=== PATIENT | female | born 1995 | race Two or more races ===

== ENCOUNTER 2021-04-13 15:29 | Observation (INO) | payer MEDICAID, OTHER ==
[2021-04-13 17:01] LABS: Basophils # (auto) 0 10 ^3/uL (0-0.2); Basophils % (auto) 0.5 % (0.0-2.0); Eosinophils # (auto) 0.1 10 ^3/uL (0-0.8); Eosinophils % (auto) 0.8 % (0.0-7.0); Hematocrit 34.8 % (36.0-46.0); Hemoglobin 12.2 g/dL (12.2-16.2); Lymphocytes # (auto) 1.3 10 ^3/uL (0.4-5.4); Lymphocytes % (auto) 16.5 % (10.0-50.0); Mean Corpuscular Hemoglobin 30.2 pg (28.0-32.0); Mean Corpuscular Hgb Conc. 35.2 g/dL (32.0-36.0); Mean Corpuscular Volume 85.9 fL (80.0-100.0); Monocytes # (auto) 0.8 10 ^3/uL (0-1.3); Monocytes % (auto) 10.5 % (0.0-12.0); Neutrophils # (auto) 5.6 10 ^3/uL (1.6-8.6); Neutrophils % (auto) 71.7 % (37.0-80.0); Nucleated Red Blood Cells % 0.2 %; Red Blood Cells 4.05 10^6/uL (4.0-5.20); Red Cell Distribution Width 13.3 % (11.8-14.3); White Blood Cell 7.8 10^3/uL (4.4-10.8)
[2021-04-13 17:04] LABS: Alcohol, Urine < 3.0 mg/dL (0-10); Amphetamine Screen, Urine NEGATIVE (NEGATIVE); Barbiturate Scree,Urine NEGATIVE (NEGATIVE); Benzodiazephine Screen, Urine NEGATIVE (NEGATIVE); Cannabinoid Screen, Urine NEGATIVE (NEGATIVE); Cocaine Screen, Urine NEGATIVE (NEGATIVE); Opiate Scree,Urine NEGATIVE (NEGATIVE); Phencyclidine Screen, Urine NEGATIVE (NEGATIVE)
== END 2021-04-13 17:19 | disposition home or self-care (01) ==
LOC: LDRP 15:29
PROVIDERS: ADMIT Obstetrics & Gynecology; ATTEND Obstetrics & Gynecology
DX: O26.893 Other specified pregnancy related conditions, third trimester (principal); R10.30 Lower abdominal pain, unspecified; M89.8X9 Other specified disorders of bone, unspecified site; Z3A.33 33 weeks gestation of pregnancy; Z79.899 Other long term (current) drug therapy
CPT/HCPCS: 36415; 59025; 76805; 80307; 81002; 85025; 94760; G0378

== ENCOUNTER 2021-05-30 21:05 | Observation (INO) | payer MEDICAID ==
[2021-05-30 22:25] LABS: Urine Bacteria FEW /hpf (None Seen); Urine Blood Negative /uL (Negative); Urine WBC 9 /hpf (0 - 5)
[2021-05-30] MEDS ORDERED: PREN-96 OR (23:52)
== END 2021-05-31 00:12 | disposition home or self-care (01) ==
LOC: LDRP 21:05
PROVIDERS: ADMIT Obstetrics & Gynecology; ATTEND Obstetrics & Gynecology
DX: O62.9 Abnormality of forces of labor, unspecified (principal); O26.893 Other specified pregnancy related conditions, third trimester; N89.8 Other specified noninflammatory disorders of vagina; O99.891 Other specified diseases and conditions complicating pregnancy; M54.9 Dorsalgia, unspecified; Z3A.40 40 weeks gestation of pregnancy
CPT/HCPCS: 59025; 76818; 81001; 84112; 87081; G0378; Q0114

== ENCOUNTER 2021-06-03 07:34 | Inpatient (IN) | payer MEDICAID ==
[~2021-06-03] VITALS: Ht 157.5 cm; Wt 68.5 kg
[~2021-06-03 07:34] MED LIST: PREN-96 OR
[2021-06-03] MEDS ORDERED: ACETAMINOPHEN 325 MG TAB PO ONE (16:45)
[2021-06-03] MEDS ORDERED: WITCH HAZEL-GLYCERIN PAD TOP PRN (18:45)
[2021-06-03] MEDS ORDERED: PENICILLIN G POT 5MIL/D5 50ML 50 ML IV ONE (18:45)
[2021-06-03] MEDS ORDERED: LIDOCAINE 2%HCL (LOCAL ANESTH.) INJ 10ml MDV IJ PRN (18:45)
[2021-06-03] MEDS ORDERED: BUTORPHANOL TARTRATE 2 MG/1 ML VIAL IV PRN ×2 (18:45)
[2021-06-03] MEDS ORDERED: DERMOPLAST 60ML BOTTLE TOP PRN (18:45)
[2021-06-03] MEDS ORDERED: PHISODERM TOP SOLN 240ML BTL TOP PRN (18:45)
[2021-06-03] MEDS ORDERED: PROMETHAZINE HCL 25 MG/ML 1ML IV PRN (18:45)
[2021-06-03 19:21] LABS: Basophils # (auto) 0 10 ^3/uL (0-0.2); Basophils % (auto) 0.2 % (0.0-2.0); Eosinophils # (auto) 0 10 ^3/uL (0-0.8); Eosinophils % (auto) 0.3 % (0.0-7.0); Hematocrit 35.3 % (36.0-46.0); Lymphocytes # (auto) 1.2 10 ^3/uL (0.4-5.4); Lymphocytes % (auto) 15.5 % (10.0-50.0); Mean Corpuscular Hemoglobin 28.6 pg (28.0-32.0); Mean Corpuscular Hgb Conc. 33.9 g/dL (32.0-36.0); Mean Corpuscular Volume 84.3 fL (80.0-100.0); Monocytes # (auto) 0.5 10 ^3/uL (0-1.3); Monocytes % (auto) 6.2 % (0.0-12.0); Neutrophils # (auto) 6.1 10 ^3/uL (1.6-8.6); Neutrophils % (auto) 77.8 % (37.0-80.0); Nucleated Red Blood Cells % 0.2 %; Red Blood Cells 4.19 10^6/uL (4.0-5.20); Red Cell Distribution Width 14.8 % (11.8-14.3); White Blood Cell 7.9 10^3/uL (4.4-10.8)
[2021-06-03 19:33] LABS: Urine Bacteria FEW /hpf (None Seen); Urine Blood Negative /uL (Negative); Urine Specific Gravity 1.002 (1.001-1.035); Urine WBC 1 /hpf (0 - 5)
[2021-06-03 19:40] LABS: INR 0.92 (0.9-1.15); Partial Thromboplastin Time 24.1 sec (23.6-33.0)
[2021-06-03 19:41] LABS: Potassium 3.7 mmol/L (3.5-5.1)
[2021-06-03 19:41] LABS: Alcohol, Urine < 3.0 mg/dL (0-10); Amphetamine Screen, Urine NEGATIVE (NEGATIVE); Barbiturate Scree,Urine NEGATIVE (NEGATIVE); Benzodiazephine Screen, Urine NEGATIVE (NEGATIVE); Cannabinoid Screen, Urine NEGATIVE (NEGATIVE); Cocaine Screen, Urine NEGATIVE (NEGATIVE); Opiate Scree,Urine NEGATIVE (NEGATIVE); Phencyclidine Screen, Urine NEGATIVE (NEGATIVE)
[2021-06-03] MEDS: LACTATED RINGER'S 1,000 ML IV SCH (19:43)
[2021-06-03 19:48] LABS: Albumin 2.3 g/dL (3.4-5.0); Bilirubin, Total 0.3 mg/dL (0.2-1.0); Calcium 8.9 mg/dL (8.5-10.1); Total Protein 6.5 g/dL (6.4-8.2)
[2021-06-03] MEDS: miSOPROStol 50 MCG per PRE-CUT 1/2 TAB PO PRN (20:58)
[2021-06-03] MEDS: PENICILLIN G POTASSIUM 2,500,000 UNITS in D5W 5% 50 ML IV SCH (23:41)
[2021-06-04] MEDS: PENICILLIN G POTASSIUM 2,500,000 UNITS in D5W 5% 50 ML IV SCH ×5 (04:01→20:00)
[2021-06-04] MEDS: LACTATED RINGER'S 1,000 ML IV SCH ×2 (05:48→16:16)
[2021-06-04] MEDS: miSOPROStol 50 MCG per PRE-CUT 1/2 TAB PO PRN (21:17)
[2021-06-05] MEDS: LACTATED RINGER'S 1,000 ML IV SCH ×4 (01:18→18:45)
[2021-06-05] MEDS: miSOPROStol 50 MCG per PRE-CUT 1/2 TAB PO PRN ×3 (01:20→09:24)
[2021-06-05 07:07] LABS: RPR Non Reactive (Non Reactive)
[2021-06-05] MEDS ORDERED: LACT. RINGERS/OXYTOCIN 20UNITS 500 ML IV ONE ×2 (07:15→07:45)
[2021-06-05] MEDS: PENICILLIN G POTASSIUM 2,500,000 UNITS in D5W 5% 50 ML IV SCH ×9 (12:00→23:34)
[2021-06-05] MEDS ORDERED: fentaNYL CITRATE 100 MCG/2 ML VL IV ONE (14:30)
[2021-06-05] MEDS ORDERED: NALOXONE HCL 0.4 MG/ML VIAL IV ONE ×2 (14:30→14:45)
[2021-06-05] MEDS ORDERED: ROPIVACAINE HCL 200 ML EPI SCH (14:30)
[2021-06-05] MEDS ORDERED: ePHEDrine SULFATE 50 MG/ML AMP IV ONE ×2 (14:30→14:45)
[2021-06-05] MEDS ORDERED: LACTATED RINGER'S 1,000 ML IV ONE (14:45)
[2021-06-05] MEDS: LACT. RINGERS/OXYTOCIN 20UNITS 1,000 ML IV SCH ×5 (15:51→18:02)
[2021-06-05] MEDS ORDERED: hydrOXYzine 25 MG TAB or CAP PO ONE (20:45)
[2021-06-05] MEDS: ceFAZolin 1GM/50ML 50 ML IV SCH (21:49)
[2021-06-06] VITALS (12 sets, daily range): BP systolic 103–118; BP diastolic 50–80
[2021-06-06] MEDS: LACTATED RINGER'S 1,000 ML IV SCH ×3 (03:20→09:13)
[2021-06-06] MEDS: PENICILLIN G POTASSIUM 2,500,000 UNITS in D5W 5% 50 ML IV SCH ×3 (03:37→12:00)
[2021-06-06] MEDS: ceFAZolin 1GM/50ML 50 ML IV SCH ×2 (05:30→23:49)
[2021-06-06] MEDS ORDERED: LACTATED RINGER'S 1,000 ML IV ONE (07:30)
[2021-06-06] MEDS ORDERED: fentaNYL CITRATE 100 MCG/2 ML VL IV ONE (07:30)
[2021-06-06] MEDS ORDERED: NALOXONE HCL 0.4 MG/ML VIAL IV ONE (07:30)
[2021-06-06] MEDS ORDERED: ePHEDrine SULFATE 50 MG/ML AMP IV ONE (07:30)
[2021-06-06] MEDS ORDERED: LIDOCAINE HCL 2 %PF INJ 10ML AMP IJ ONE (07:30)
[2021-06-06] MEDS ORDERED: ROPIVACAINE HCL 200 ML EPI SCH ×2 (07:30→08:15)
[2021-06-06] MEDS ORDERED: TETRACAINE 1% INJ 2 ML VIAL IJ ONE (12:19)
[2021-06-06] MEDS ORDERED: SODIUM CITR/CITRIC ACID ORAL SOLN 30 ML ONE (12:21)
[2021-06-06] MEDS ORDERED: MORPHINE SULF PF 5 MG/10 ML VIAL ONE (12:24)
[2021-06-06] MEDS ORDERED: METHYLERGONOVINE MALEATE 0.2 MG/ML AMP IM ONE ×2 (12:45→12:46)
[2021-06-06] MEDS ORDERED: miSOPROStol 100 mcg TAB PO ONE (12:45)
[2021-06-06] MEDS ORDERED: miSOPROStol 100 mcg TAB ONE (12:46)
[2021-06-06] MEDS ORDERED: MIDAZOLAM HCL 2MG/2ML 2ml VIAL (1mg/ml) ONE (12:48)
[2021-06-06] MEDS ORDERED: CARBOPROST TROMETHAMINE 250 MCG/1ML VIAL IM ONE (12:56)
[2021-06-06] MEDS ORDERED: SODIUM CITR/CITRIC ACID ORAL SOLN 30 ML PO SCH (13:00)
[2021-06-06] MEDS ORDERED: ceFAZolin 1GM/50ML 50 ML IV SCH ×2 (13:15→15:45)
[2021-06-06] MEDS ORDERED: LACT. RINGERS/OXYTOCIN 20UNITS 1,000 ML IV SCH (13:15)
[2021-06-06] MEDS ORDERED: ONDANSETRON HCL 4 MG/2 ML VIAL IV PRN ×2 (13:15→13:45)
[2021-06-06] MEDS ORDERED: oxyTOCIN 10 UNIT/ML 10ML VIAL ONE (13:37)
[2021-06-06] MEDS ORDERED: DexAMETHasone SOD PHOS 10MG/1ML VIAL INJ IV PRN (13:45)
[2021-06-06] MEDS ORDERED: KETOROLAC TROMETH 30 MG/ML 1ML VIAL IV PRN (13:45)
[2021-06-06] MEDS ORDERED: NALBUPHINE HCL 10 MG/1ml INJECTION SUBCUT ONE (13:45)
[2021-06-06] MEDS ORDERED: HYDROmorphone HCL 2 MG/ML VL/or syr IV PRN (13:45)
[2021-06-06] MEDS ORDERED: NALOXONE HCL 0.4 MG/ML VIAL IV PRN (13:45)
[2021-06-06] MEDS ORDERED: diphenhdrAMINE HCL 50 MG/1 ML VL IV PRN (13:45)
[2021-06-06] MEDS ORDERED: OXYTOCIN 10UNIT/ML 1ML VIAL ONE (14:00)
[2021-06-06] MEDS ORDERED: BUTORPHANOL TARTRATE 2 MG/1 ML VIAL IV PRN (14:30)
[2021-06-06] MEDS: ACETAMINOPHEN IV 1000 MG/100ML (10MG/ML) IV PRN ×2 (16:18→17:28)
[2021-06-06] MEDS ORDERED: LOPERAMIDE HCL 2 MG CAP/TAB PO PRN (21:45)
[2021-06-06] MEDS ORDERED: DIPHENOXYLATE W/ATROPINE 2.5 MG TAB PO SCH (22:00)
[2021-06-06 22:13] LABS: Basophils # (auto) 0.1 10 ^3/uL (0-0.2); Basophils % (auto) 0.5 % (0.0-2.0); Eosinophils # (auto) 0 10 ^3/uL (0-0.8); Eosinophils % (auto) 0.2 % (0.0-7.0); Hematocrit 33.4 % (36.0-46.0); Hemoglobin 11.2 g/dL (12.2-16.2); Lymphocytes # (auto) 0.9 10 ^3/uL (0.4-5.4); Lymphocytes % (auto) 7.7 % (10.0-50.0); Mean Corpuscular Hemoglobin 28.7 pg (28.0-32.0); Mean Corpuscular Hgb Conc. 33.6 g/dL (32.0-36.0); Mean Corpuscular Volume 85.2 fL (80.0-100.0); Monocytes # (auto) 0.8 10 ^3/uL (0-1.3); Monocytes % (auto) 6.8 % (0.0-12.0); Neutrophils # (auto) 9.9 10 ^3/uL (1.6-8.6); Neutrophils % (auto) 84.8 % (37.0-80.0); Nucleated Red Blood Cells % 0.2 %; Red Blood Cells 3.92 10^6/uL (4.0-5.20); Red Cell Distribution Width 15.1 % (11.8-14.3); White Blood Cell 11.7 10^3/uL (4.4-10.8)
[2021-06-07] VITALS (13 sets, daily range): BP systolic 98–114; BP diastolic 50–70
[2021-06-07] MEDS: ACETAMINOPHEN IV 1000 MG/100ML (10MG/ML) IV PRN (02:03)
[2021-06-07] MEDS: ceFAZolin 1GM/50ML 50 ML IV SCH (05:31)
[2021-06-07 06:24] LABS: Basophils # (auto) 0 10 ^3/uL (0-0.2); Basophils % (auto) 0.3 % (0.0-2.0); Eosinophils # (auto) 0 10 ^3/uL (0-0.8); Eosinophils % (auto) 0.4 % (0.0-7.0); Hemoglobin 10.1 g/dL (12.2-16.2); Lymphocytes % (auto) 10.9 % (10.0-50.0); Mean Corpuscular Hemoglobin 29.6 pg (28.0-32.0); Mean Corpuscular Hgb Conc. 34.9 g/dL (32.0-36.0); Monocytes # (auto) 0.7 10 ^3/uL (0-1.3); Monocytes % (auto) 8.1 % (0.0-12.0); Neutrophils # (auto) 7.2 10 ^3/uL (1.6-8.6); Neutrophils % (auto) 80.3 % (37.0-80.0); Nucleated Red Blood Cells % 0.1 %; Red Blood Cells 3.41 10^6/uL (4.0-5.20)
[2021-06-07] MEDS ORDERED: BISACODYL 10 MG RECT SUPP PR PRN (08:45)
[2021-06-07] MEDS ORDERED: HYDROcodone-ACET 5/325MG TAB PO PRN ×2 (08:45)
[2021-06-07] MEDS: DOCUSATE SOD 100 MG CAP PO SCH ×2 (10:06→22:32)
[2021-06-07] MEDS: IBUPROFEN 800 MG TAB PO PRN ×2 (10:06→19:26)
[2021-06-07] MEDS: DOCUSATE CALCIUM 240 MG CAP PO SCH (10:10)
[2021-06-07] MEDS: SIMETHICONE 80 MG CHEWABLE TABLET PO SCH ×3 (12:00→22:32)
[2021-06-08 02:50] VITALS: BP 98/55
[2021-06-08] MEDS: SIMETHICONE 80 MG CHEWABLE TABLET PO SCH ×4 (05:55→22:00)
[2021-06-08 07:30] VITALS: BP 100/65
[2021-06-08] MEDS: DOCUSATE CALCIUM 240 MG CAP PO SCH (09:44)
[2021-06-08] MEDS: IBUPROFEN 800 MG TAB PO PRN ×2 (09:44→17:52)
[2021-06-08] MEDS: DOCUSATE SOD 100 MG CAP PO SCH ×2 (09:45→22:00)
[2021-06-08 11:30] VITALS: BP 105/64
[2021-06-08 15:30] VITALS: BP 108/77
[2021-06-08 19:00] VITALS: BP 105/63
[2021-06-08] MEDS ORDERED: FUROSEMIDE 20 MG TAB PO ONE (21:00)
[2021-06-08 23:30] VITALS: BP 95/65
[2021-06-09] MEDS: IBUPROFEN 800 MG TAB PO PRN ×2 (01:55→09:37)
[2021-06-09 02:58] VITALS: BP 110/70
[2021-06-09] MEDS ORDERED: HYDR-4902 PO (05:47)
[2021-06-09] MEDS ORDERED: IBUP800T27 PO (05:47)
[2021-06-09] MEDS ORDERED: DOCU-94 PO (05:47)
[2021-06-09 07:00] VITALS: BP 94/64
[2021-06-09] MEDS: SIMETHICONE 80 MG CHEWABLE TABLET PO SCH (09:37)
[2021-06-09] MEDS: DOCUSATE SOD 100 MG CAP PO SCH (09:37)
[2021-06-09] MEDS: DOCUSATE CALCIUM 240 MG CAP PO SCH (09:37)
[2021-06-09 11:00] VITALS: BP 102/70
== END 2021-06-09 13:00 | disposition home or self-care (01) | DRG 540 ==
LOC: LDRP 13:45 → OBSVTOIN 18:00 → LDRP 20:50
PROVIDERS: ADMIT Obstetrics & Gynecology; ATTEND Obstetrics & Gynecology
PROC: 3E0P7VZ Introduction of Hormone into Female Reproductive, Via Natural or Artificial Opening (ICD-10-PCS; 2021-06-03)
PROC: 3E0DXGC Introduction of Other Therapeutic Substance into Mouth and Pharynx, External Approach (ICD-10-PCS; 2021-06-03)
PROC: 10D00Z1 Extraction of Products of Conception, Low, Open Approach (ICD-10-PCS; principal; 2021-06-06 12:27)
DX: O48.0 Post-term pregnancy (principal); O62.2 Other uterine inertia; O76 Abnormality in fetal heart rate and rhythm complicating labor and delivery; O99.824 Streptococcus B carrier state complicating childbirth; Z20.822 Contact with and (suspected) exposure to COVID-19; Z37.0 Single live birth; Z3A.40 40 weeks gestation of pregnancy
CPT/HCPCS: 36415; 59025; 62282; 76818; 80053; 80307; 81001; 81002; 85025; 85610; 85730; 86592; 86850; 86900; 86901; 93970; 94760; 94762; 96360; 96361; 96365; 96366; 96374; G0378; J0131; J0690; J2001; J2250; J2405; J2540; J2590; J7060

== ENCOUNTER 2021-06-23 01:14 | Emergency (ER) | payer SELFPAY ==
[~2021-06-23] VITALS: Ht 157.5 cm; Wt 63.5 kg
[2021-06-23 01:14] VITALS: BP 130/70
[~2021-06-23 01:14] MED LIST changes: +DOCU-94 PO; +HYDR-4902 PO; +IBUP800T27 PO
== END 2021-06-23 01:48 | disposition left against medical advice (07) ==
LOC: ER 01:14
DX: R10.13 Epigastric pain (principal); Z53.21 Procedure and treatment not carried out due to patient leaving prior to being seen by health care provider

== ENCOUNTER 2024-07-14 14:15 | Emergency (ER) | payer MEDICAID ==
[~2024-07-14] VITALS: Ht 157.5 cm; Wt 55.0 kg
[~2024-07-14 14:15] MED LIST changes: +IBUP-1456 PO; -IBUP800T27 PO
[2024-07-14 14:40] VITALS: BP 98/56; RESP 18; TEMP 97.9; O2SAT 99
[2024-07-14 14:50] VITALS: PULSE 50
--- NOTE | 2024-07-14 14:50 | ED.PDOC ---
HPI Comments 28 y.o female presents to the ED for a chief complaint of left sided chest pain associated with a generalized headache, weakness and blurred vision that started one week ago. Patient reports pain is sharp but also numbing, causing full body numbness. Patient denies any nausea, vomiting, abdominal pain, fever, chills, or leg swelling. Patient denies medical history or allergies. Chief Complaint: Chest Pain Time Seen by MD: 14:36 Primary Care Provider: NONE Reviewed Notes: Nurses Notes, Medications, Allergies Allergies: Coded Allergies: NO KNOWN ALLERGIES (Unverified , 06/03/21) Home Meds Active Scripts Ibuprofen (Ibuprofen) 800 Mg Tab, 800 MG PO TID PRN for 15 Days, #40 TAB Prov:SONYA DE LA CRUZ DO 06/09/21 Hydrocodone-Acetaminophen (Hydrocodone Bitartrate/AC 5-325 mg) 1 Tab Tab, 1 TAB PO Q6HPRN PRN for 5 Days, #20 TAB Prov:SONYA DE LA CRUZ 06/09/21 Docusate Sodium (Colace) 100 Mg Cap, 1 CAP PO BID, #60 CAP 2 Refills Prov:SONYA DE LA CRUZ 06/09/21 Reported Medications Vit W/ Ferrous Fumara ( One Daily) Daily Tab, 1 OR, TAB 05/30/21 Information Source: Patient Mode of Arrival: Ambulatory Severity: Moderate Timing: Weeks (1) Duration: Since onset Location: Chest (L) Radiation: No Radiation Quality: Sharp Onset: At Rest Cardiac Risk Factors: None PE Risk Factors: None History of: None Modifying Factors: Nothing Associated Signs and Symptoms: Other Past Medical History PAST MEDICAL HISTORY: Denies Surgical History: Denies all surgeries PULP PRESS TENDER History: No Pertinent PULP PRESS TENDER History Family History Family History: Reviewed,noncontributory to illness Social History Smoker: Non-Smoker Alcohol: Denies ETOH Use Drugs: Denies Drug Use Lives In: Home Constitutional: reports: weakness; denies: chills, diaphoresis, fatigue, fever, malaise, sweats, others EENTM: reports: blurred vision; denies: double vision, ear bleeding, ear discharge, ear drainage, ear pain, ear ringing, eye pain, eye redness, hearing loss, mouth pain, mouth swelling, nasal discharge, nose bleeding, nose congestion, nose pain, photophobia, tearing, throat pain, throat swelling, voice changes, others Respiratory: denies: cough, hemoptysis, orthopnea, SOB at rest, shortness of breath, SOB with excertion, stridor, wheezing, others Cardiovascular: reports: chest pain; denies: dizzy spells, diaphoresis, Dyspnea on exertion, edema, irregular heart beat, left arm pain, lightheadedness, palpitations, PND, syncope, others Gastrointestinal: denies: abdomen distended, abdominal pain, blood streaked bowels, constipated, diarrhea, dysphagia, difficulty swallowing, hematemesis, melena, nausea, poor appetite, poor fluid intake, rectal bleeding, rectal pain, vomiting, others Genitourinary: denies: abnormal vagina bleeding, burning, dyspareunia, dysuria, flank pain, frequency, hematuria, incontinence, pain, , vagina discharge, urgency, others Neurological: reports: headache; denies: dizziness, fainting, left sided numbness, left sided weakness, numbness, paresthesia, pre-existing deficit, right sided numbness, right sided weakness, seizure, speech problems, tingling, tremors, weakness, others Musculoskeletal: denies: back pain, gout, joint pain, joint swelling, muscle pain, muscle stiffness, neck pain, others Integumetry: denies: bruises, change in color, change in hair/nails, dryness, laceration, lesions, lumps, rash, wounds, others Allergic/Immunocompromised: denies: Difficulty Healing, Frequent Infections, Hives, Itching, others Hematologic/Lymphatic: denies: anemia, blood clots, easy bleeding, easy bruising, swollen glands, others Endocrine: denies: excessive hunger, excessive sweating, excessive thirst, excessive urination, flushing, intolerance to cold, intolerance to heat, unexplained weight gain, unexplained weight loss, others Psychiatric: denies: anxiety, bipolar disorder, depression, hopeless, panic disorder, schizophrenia, sleepless, suicidal, others All Other Systems: Reviewed and Negative Physical Exam General Appearance: Moderate Distress HEENT: Normal ENT Inspection, Pharynx Normal, TMs Normal Neck: Full Range of Motion, Non-Tender, Normal, Normal Inspection Respiratory: Chest Non-Tender, Lungs Clear, No Accessory Muscle Use, No Respiratory Distress, Normal Breath Sounds Cardiovascular: No Edema, No JVD, No Murmur, No Gallop, Normal Peripheral Pulses, Regular Rate/Rhythm Breast Exam: Deferred Gastrointestinal: No Organomegaly, Non Tender, No Pulsatile Mass, Normal Bowel Sounds, Soft Genitalia: Deferred Pelvic: Deferred Rectal: Deferred Extremities: No calf tenderness, Normal capillary refill, Normal inspection, Normal range of motion, Non-tender, No pedal edema Musculoskeletal : Apperance: Normal Neurologic: Alert, mother superior II-XII nml as Tested, No Motor Deficits, Normal Affect, Normal Mood, No Sensory Deficits Cerebellar Function: Normal Reflexes: Normal Skin: Dry, Normal Color, Warm Peripheral Pulses: 3+ Radial (R), 3+ Radial (L) Lymphatic: No Adenopathy EKG EKG : Pulse Rate (adult): 50 Cardiac Rhythm: NSR Was a procedure done? Was a procedure done?: No CP Differential Dx Differential Diagnosis: A-fib, A-Flutter, Angina, Anxiety / Panic Attack, Atrial Dysrhythmia, Electrolyte Disorder, N/A Differential Diagnosis: Angina, Cholelithiasis, Costochondritis, Esophageal reflux/spasm, Pericarditis X-Ray, Labs, Meds, VS Vital Signs Date Time Temp Pulse Resp B/P (MAP) Pulse Ox O2 Delivery O2 Flow Rate FiO2 07/14/24 14:50 50 07/14/24 14:40 97.9 54 18 98/56 (70) 99 97.9 07/14/24 14:24 50 Patient alert. Complaining of chest pain. Vitals stable. Answering questions. Saturation pristine on room air. EKG reviewed does not show any acute changes. Physical examination is pristine. No head injury pain No scalp hematoma. No change in behavior. CT of the head was not done because physical examination was pristine. Explained to the patient. Was told to follow up with her primary care physician. Was told to come back if there is any problem. Time of 1ST Reevaluation: 14:47 Reevaluation 1ST: Improved Patient Education/Counseling: Diagnosis, Treatment, Prognosis Family Education/Counseling: No Family Present Departure 1 Departure Time of Disposition: 14:55 Impression: Primary Impression: Dehydration Disposition: 01 HOME / SELF CARE / HOMELESS Condition: Good Discharged With: Self Critical Care Note Critical Care Time?: No Stability Stability form required: No Heart Score Heart Score: Heart Score Response (Comments) Value History Slightly Suspicious 0 EKG Normal 0 Age <45 0 Risk Factors No known risk factors 0 Troponin Normal limit 0 Total 0 I personally scribed for ROSA MCKEON MD ([email or web address]) on 07/14/24 at 14:50. Electronically submitted by Radha Gonzales ([facility]). ROSA MCKEON MD Jul 14, 2024 14:50
--- NOTE | 2024-07-14 14:51 | ECG ---
[facility] Test Date: 2024-07-14 Test Time: 14:24:38 Pat Name: RAJWINDER JURADO Department: ER Room: Gender: F Wellness Assistant: GP : 1995 Requested By: ROSA MCKEON Order Number: [id number] Reading MD: Tayo Prasad Measurements Intervals [place] Rate: 50 P: 53 [place]: 126 QRS: 50 QRSD: 94 T: 48 QT: 412 QTc: 376 Interpretive Statements Sinus rhythm RSR' in V1 or V2, right VCD or RVH Baseline wander in lead(s) V1 Electronically Signed On 07-15-2024 12:37:49 PDT by Tayo Prasad Please click the below link to view image of tracing.
[2024-07-14] MEDS: SODIUM CHLORIDE 0.9% 1,000 ML IV ONE (15:00)
[2024-07-14] MEDS: HYDROcodone-ACET 10/325MG TAB PO ONE ×2 (15:23→15:45)
[2024-07-14] MEDS ORDERED: ACETAMINOPHEN 325 MG TAB PO ONE (15:30)
== END 2024-07-14 16:32 | disposition home or self-care (01) ==
LOC: ER 14:15
DX: E86.0 Dehydration (principal); Z79.899 Other long term (current) drug therapy
CPT/HCPCS: 36415; 84484; 93005